=== PATIENT | female | born 1970 | race Caucasian/White ===

== ENCOUNTER 2020-07-29 11:02 | Outpatient (REF) | payer MEDICAID, SELFPAY ==
--- NOTE | 2020-07-29 | XR_ITS ---
EXAMINATION: XR ANKLE, LEFT CLINICAL INFORMATION: Pain left ankle. COMPARISON: Left ankle 06/24/2017. TECHNIQUE: AP, lateral, and mortise views of the left ankle. FINDINGS: There are 2 medial malleolar screws for old healed fracture. There is a lateral metallic plate and screws for an old healed fibular fracture. The ankle mortise and subtalar joints are normal. There is mild lateral malleolar soft tissue swelling. XR/XR ankle LT min 3V IMPRESSION: Old healed medial malleolar and distal fibular fractures stabilized with hardware as described above. There is mild lateral malleolar soft tissue swelling, likely ligamentous injury from recent trauma.
== END 2020-07-29 11:03 | disposition home or self-care (01) ==
LOC: HO.XRAY 11:02
PROVIDERS: Visit Provider Registered Nurse
DX: M25.572 Pain in left ankle and joints of left foot (principal); S99.912A Unspecified injury of left ankle, initial encounter
CPT/HCPCS: 73610

== ENCOUNTER → 2020-08-14 11:20 | Outpatient (BNVA) | payer MEDICAID, SELFPAY | PROVIDERS: PCP Registered Nurse; Visit Provider Physician Assistant | DX: Z76.89 Persons encountering health services in other specified circumstances (principal) ==

== ENCOUNTER 2020-09-30 15:35 | Outpatient (REF) | payer MEDICAID, SELFPAY | END 2020-09-30 15:36 | disposition home or self-care (01) | LOC: HO.HAP 15:35 | PROVIDERS: Visit Provider Registered Nurse | DX: Z46.1 Encounter for fitting and adjustment of hearing aid (principal) | CPT/HCPCS: V5266 ==

== ENCOUNTER 2020-10-07 08:10 | Day surgery (SDC) | payer MEDICAID, SELFPAY ==
[2020-10-01 11:29] VITALS: BMI 31.1
--- NOTE | 2020-10-04 10:05 | HO.ANESPROP2 ---
Documented by User: Margo Mari 10/04/20 10:06 HPI - Anesthesia Eval Consult details Narrative: 49yo F for Colonoscopy PMFSH Active Problems Active Problems: All Active Problems (Updated 10/01/20 @ 10:48 by Nicole Dixon) Encounter for screening colonoscopy (Acute) Acid reflux (Acute) Dyslipidemia (Acute) HTN (hypertension) (Acute) Past Medical History Medical History Acid reflux Anxiety Asthma Depression Dyslipidemia History of tinnitus HTN (hypertension) Migraines Family History Family History Father Diabetes Maternal Grandmother Diabetes Paternal Grandmother Diabetes Paternal Aunt Cancer Paternal Aunt Cancer Surgical History Surgical History History of hysterectomy History of open reduction and internal fixation (ORIF) procedure Social History Social History Are you a primary floor care specialist to a significant other at home: No Do you presently have visiting nurse or other home services: No Alcohol intake: never Smoking Status: Never smoker Use of substances other than those prescribed or required for medical reasons: No Have you been hit, kicked, punched, or otherwise hurt by someone within the past year? If so, by whom?: No Advance Directives: No Advance Directives Information Provided: No Advance Directives on File: No Recently lost weight without trying: No Meds Allergies Allergy/AdvReac Type Severity Reaction Status Date / Time Penicillins [PENICILLINS] Allergy Unknown Rash Verified 10/01/20 11:27 Home Medications Medication Instructions Recorded Confirmed Last Taken Type atorvastatin 40 mg tablet 40 mg PO DAILY 08/14/20 10/01/20 Unknown History buspirone 5 mg tablet 5 mg PO BID 08/14/20 10/01/20 Unknown History cholecalciferol (vitamin D3) 50 50 mcg PO DAILY 08/14/20 10/01/20 Unknown History mcg (2,000 unit) capsule pantoprazole 40 mg tablet,delayed 40 mg PO DAILY 08/14/20 10/01/20 10/07/20 History release propranolol 20 mg tablet 20 mg PO BID 08/14/20 10/01/20 Unknown History sucralfate 1 gram tablet 1 g PO BID 08/14/20 10/01/20 Unknown History venlafaxine 50 mg tablet 50 mg PO BID 08/14/20 08/14/20 Unknown History amlodipine 1 tab PO DAILY 10/01/20 10/01/20 Unknown History aripiprazole 1 tab PO DAILY 10/01/20 10/01/20 10/07/20 History cetirizine 1 tab PO DAILY 10/01/20 10/01/20 Unknown History fluticasone propionate 1 - 2 spray INTRANASAL NEEDED 10/01/20 10/01/20 Unknown History hydrochlorothiazide 1 tab PO DAILY 10/01/20 10/01/20 Unknown History losartan 1 tab PO DAILY 10/01/20 10/01/20 Unknown History omeprazole 1 cap PO BID 10/01/20 10/01/20 10/07/20 History venlafaxine 1 cap PO DAILY 10/01/20 10/01/20 Unknown History Exam Exam Date and Time: October 04, 2020 1005 Height,Weight and Vital Signs: Height 5 ft 2 in Weight 77.111 kg Assessment and Plan Assessment Anesthesia Assessment: Chart Reviewed Documented by User: Kristi Patterson 10/07/20 08:38 [facility] Past Medical History Medical History Acid reflux Anxiety Asthma Depression Dyslipidemia History of tinnitus HTN (hypertension) Migraines Family History Family History Father Diabetes Maternal Grandmother Diabetes Paternal Grandmother Diabetes Paternal Aunt Cancer Paternal Aunt Cancer Surgical History Surgical History History of hysterectomy History of open reduction and internal fixation (ORIF) procedure Social History Social History Are you a primary floor care specialist to a significant other at home: No Do you presently have visiting nurse or other home services: No Alcohol intake: never Smoking Status: Never smoker Use of substances other than those prescribed or required for medical reasons: No Have you been hit, kicked, punched, or otherwise hurt by someone within the past year? If so, by whom?: No Advance Directives: No Advance Directives Information Provided: No Advance Directives on File: No Recently lost weight without trying: No Meds Allergies Allergy/AdvReac Type Severity Reaction Status Date / Time Penicillins [PENICILLINS] Allergy Unknown Rash Verified 10/01/20 11:27 Home Medications Medication Instructions Recorded Confirmed Last Taken Type atorvastatin 40 mg tablet 40 mg PO DAILY 08/14/20 10/01/20 Unknown History buspirone 5 mg tablet 5 mg PO BID 08/14/20 10/01/20 Unknown History cholecalciferol (vitamin D3) 50 50 mcg PO DAILY 08/14/20 10/01/20 Unknown History mcg (2,000 unit) capsule pantoprazole 40 mg tablet,delayed 40 mg PO DAILY 08/14/20 10/01/20 10/07/20 History release propranolol 20 mg tablet 20 mg PO BID 08/14/20 10/01/20 Unknown History sucralfate 1 gram tablet 1 g PO BID 08/14/20 10/01/20 Unknown History venlafaxine 50 mg tablet 50 mg PO BID 08/14/20 08/14/20 Unknown History amlodipine 1 tab PO DAILY 10/01/20 10/01/20 Unknown History aripiprazole 1 tab PO DAILY 10/01/20 10/01/20 10/07/20 History cetirizine 1 tab PO DAILY 10/01/20 10/01/20 Unknown History fluticasone propionate 1 - 2 spray INTRANASAL NEEDED 10/01/20 10/01/20 Unknown History hydrochlorothiazide 1 tab PO DAILY 10/01/20 10/01/20 Unknown History losartan 1 tab PO DAILY 10/01/20 10/01/20 Unknown History omeprazole 1 cap PO BID 10/01/20 10/01/20 10/07/20 History venlafaxine 1 cap PO DAILY 10/01/20 10/01/20 Unknown History Exam Airway Mallampati Class: II TM Dist: >3cm Neck ROM: Full Assessment and Plan Assessment Anesthesia Assessment: Anesthesia Plan Discussed and Chart Reviewed Final Anesthetic Review NPO: Yes ASA Class: II Final Preanesthetic Review: No Changes in Pt Med Stat, Meds/Allgs Chart Reviewed, Consent Obtained/Reviewed and Anes Risks/Benef Reviewed Patient Risk: Low Procedure Risk: Low Assessment/Block/Sedation in SS: Assess/Block/Sedation-SS Anesthetic Plan Anesthetic Plan: MAC: Disposition: Standard PACU
--- NOTE | 2020-10-07 08:28 | W.PM.OPN ---
Operative Note Operative Note Date of Service: 10/11/20 Narrative: Pre-op diagnosis: Colon cancer screening Post-op diagnosis: other (Colon polyps, diverticulosis) Procedure: COLONOSCOPY TILL CECUM WITH BIOPSIES Consent: Indications for the procedure and potential complications of bleeding, perforation, reaction to medications and missed diagnosis were discussed with the patient and informed consent was obtained. Instrument: Olympus PCF H 190 L variable stiffness pediatric colonoscope Monitoring: Vital signs and clinical assessment, intermittent blood pressure monitoring, continuous EKG monitoring, Pulse oximetry and Carbon Dioxide monitoring were done throughout the procedure. Colon withdrawl time was 16 minutes. Procedure: The patient was placed in the left lateral decubitis position and pre-procedure medications were administered. After a digital rectal examination of the ano-rectum, the video colonoscope was inserted into the rectum and advanced through the colon to the cecum. The colonoscope was slowly withdrawn in a retrograde panoramic fashion and the colon mucosa was carefully examined including a retroflexed view of the rectum. Findings and interventions are described below. Procedure Difficulty: Without difficulty Findings: Terminal Ileum: Not evaluated Cecum: Normal Ascending Colon: A 4-5mm polyp versus fold in the distal AC - biopsied. Transverse Colon: Normal Descending Colon: Moderate diverticulosis Sigmoid Colon: Moderate diverticulosis Rectum: A 7-8 mm sessile polyp just proximal to ano-rectal junction - removed with a cold biopsy. Ano-rectum: Perianal skin tags Colon preparation: Excellent Impression and Post Procedure Diagnosis: Colonoscopy Findings: Two small polyps removed Moderate diverticulosis seen in the left colon Plan: Await pathology results Patient has an appointment on 10/14/20 in the [facility] with TRACEE Meredith. Repeat Colonoscopy interval based on path results - in 5 years if polyps are adenomatous and 10 years if polyps are hyperplastic. Above findings were reviewed with the patient and [colon polyps] and [diverticulosis] handouts were given in the discharge area Surgeon: Rebekah Salazar MD Anesthesia: MAC (Chasity Marquez CRNA) Audio/Visual Operator: Kavitha Dodge Estimated blood loss (mL): 0 Pathology: other ( A. ASCENDING COLON POLYP VS FOLD B. RECTAL POLYP) Condition: stable Disposition: PACU
--- NOTE | 2020-10-07 08:28 | MHC.SHP ---
Pre-Procedural Eval Section A The patient is an INPATIENT: No The History & Physical has been completed within 30 days and I have reviewed it.: No Section B Chief Complaint: screening Details of Present Illness: Colon cancer screening Relevant Family History (Specify if Yes): No Relevant Social History: None Present Medications: see Short Stay Collaborative assessment Medical History: Significant History (Dyslipidemia, HTN (hypertension)) History of Previous Operations: Relevant previous surgery/procedure and date(s) (History of hysterectomy) Allergies: Allergies Allergy/AdvReac Type Severity Reaction Status Date / Time Penicillins [PENICILLINS] Allergy Unknown Rash Verified 10/01/20 11:27 Review of Systems Sugical H&P ROS: Negative: Constitution, Cardiovascular, Respiratory and Gastrointestinal Exam Surgical H&P Exam: Normal: Heart, Normal: Lungs, Normal: Extremities and Normal: Abdomen Plan Diagnosis/Plan: Unchanged I have reviewed the history and physical and performed a pertinent physical examination on my patient. No changes have occurred unless specified.
[2020-10-07 08:44] VITALS: BP 136/86; PULSE 104; RESP 18; TEMP 36.4; O2SAT 96
[2020-10-07 09:30] VITALS: BP 128/79; PULSE 92; RESP 16; TEMP 36.6; O2SAT 99
[2020-10-07 09:45] VITALS: BP 118/74; PULSE 87; RESP 16; O2SAT 100
[2020-10-07 09:59] VITALS: BP 127/86; PULSE 80; RESP 16; O2SAT 100
--- NOTE | 2020-10-07 10:16 | PC.NURSE ---
1005 AWAKE ALERT JOSE LUIS PO MONITORS DCD ASST TO BR GAIT STEADY VOID RET PACU 13 BS CH IV DCD DRESSED SELF AT BS CALL [facility] IN REACH INTERP CALLED FOR DR CUELLO WHO WOULD LIKE TO SPEAK W PT
== END 2020-10-07 11:08 | disposition home or self-care (01) ==
PROVIDERS: Visit Provider Internal Medicine Gastroenterology
PROC: 0DJD8ZZ Inspection of Lower Intestinal Tract, Via Natural or Artificial Opening Endoscopic (ICD-10-PCS; CPT 45378; principal; 2020-10-07 10:00)
DX: Z12.11 Encounter for screening for malignant neoplasm of colon (principal); K63.5 Polyp of colon; K62.1 Rectal polyp; K57.30 Diverticulosis of large intestine without perforation or abscess without bleeding; K64.4 Residual hemorrhoidal skin tags; K21.9 Gastro-esophageal reflux disease without esophagitis; J45.909 Unspecified asthma, uncomplicated; I10 Essential (primary) hypertension; Z79.899 Other long term (current) drug therapy
CPT/HCPCS: 45380; 88305

== ENCOUNTER → 2020-10-14 11:31 | Outpatient (BNVA) | payer MEDICAID, SELFPAY | PROVIDERS: PCP Registered Nurse; Visit Provider Physician Assistant ==

== ENCOUNTER → 2020-10-17 10:14 | Outpatient (REF) | payer MEDICAID, SELFPAY ==
--- NOTE | ~2020-10-17 | NM_ITS ---
EXERCISE MYOCARDIAL PERFUSION STUDY INDICATION: Chest pain, shortness of breath, assess for coronary disease and ischemia TECHNIQUE: The patient was brought in for an exercise perfusion study on 10/17/2020. Patient performed exercise as per Alan protocol and was injected 25 mCi of sestamibi once target heart rate was achieved. Images were obtained using the SPECT gamma camera interlaced with the gating device. Images were obtained in supine position. Resting perfusion study was performed on 10/21/2020. Patient was administered 25 mCi of sestamibi intravenously at rest. Images were then obtained in supine position. Total DLP 90mGy-cm. Images were processed with the software and compared side to side in short axis, horizontal long axis and vertical long axis views. FINDINGS: Raw images were reviewed. The stress perfusion study showed no significant perfusion abnormality. Both uncorrected as well as CT attenuation corrected images were reviewed. The gated study shows normal LV systolic function with calculated LVEF of 69%. LV cavity is normal in size. The gated study shows normal wall thickening and contraction of segments. Resting study shows no significant perfusion abnormality. With CT attenuation correction, the perfusion appear worse, most likely all artifactual. Gating at rest reveals normal wall motion with ejection fraction at 61%. The findings are consistent with no reversible or fixed perfusion abnormality. NM/NM carleen perf SPECT rest & str IMPRESSION: 1. Myocardial perfusion imaging study shows normal myocardial perfusion. No evidence of any ischemia or infarction. 2. Gated LVEF is 69 % during stress and 61% during rest. 3. Transient ischemic dilatation not present. EKG component of the test reported separately.
--- NOTE | 2020-10-17 10:00 | CA_ITS ---
Acquisition Time: 2020-10-17 10:23:37 Total Exercise Time: 00:06:18 Test Indications: SOB,HTN Medications: SEE CHART Protocol: DANIELLA Max HR: 146 BPM 85% of Pred: 170 BPM Max BP: 158/078 mmHG Max Work Load: 7.0 METS Exercise stress Nuclear using Daniella protocol. Total of 6 min 18 sec. Tolerated well, denies any anginal sx. EKG without arrhythmias, no ischemic changes seen during exercise or in recovery. Nuclear images to follow. Normotensive response to exercise. Test reviewed with Dr. Pete. Referred By: Wayne Wagner Overread By: Ligia Pang NP
== END ==
LOC: HO.CARD 10:14
PROVIDERS: Visit Provider Internal Medicine Cardiovascular Disease
DX: R06.02 Shortness of breath (principal)
CPT/HCPCS: 78452; 93016; 93017; 93018; A9500